=== PATIENT | female | born 1955 | race Caucasian/White ===

== ENCOUNTER 2020-09-04 08:41 | Emergency (ER) | payer OTHER ==
[2020-09-05 14:39] LABS: SARS-CoV-2 PCR by NAA Not Detected (NotDetected)
== END 2020-09-04 10:20 | disposition home or self-care (01) ==
LOC: MADERS 08:41
DX: B34.9 Viral infection, unspecified (principal); Z20.822 Contact with and (suspected) exposure to COVID-19; E78.5 Hyperlipidemia, unspecified; E78.00 Pure hypercholesterolemia, unspecified; Z87.891 Personal history of nicotine dependence; Z79.899 Other long term (current) drug therapy
CPT/HCPCS: 71046; 87804; U0003; U0005